=== PATIENT | female | born 1930 | race Hispanic/Latino ===

== ENCOUNTER → 2017-12-30 | Outpatient (CLI) | payer MEDICARE ==
[~2017-12-30] MED LIST: AEC81 PO; ALEN70TA47 PO; AMOX-426 PO; BENZ-51 PO; DUONEB IH; FLUT1DIS4 IH; FURO20TA4 PO; GABA-529 PO; LEVO50 GT; LOVA40TA2 PO; METO50 GT; OMEP40CA37 PO; OSEL75 PO; OXYB10TA PO; TAMO20TA4 PO
== END | disposition home or self-care (01) ==
LOC: RAH 13:55
PROVIDERS: ATTEND Family Medicine
DX: R92.8 Other abnormal and inconclusive findings on diagnostic imaging of breast (principal); Z85.3 Personal history of malignant neoplasm of breast; Z90.11 Acquired absence of right breast and nipple
CPT/HCPCS: 77065